=== PATIENT | male | born 1940 | race Caucasian/White ===

== ENCOUNTER 2021-10-25 03:55 | Emergency (ER) | payer OTHER, SELFPAY ==
[2021-10-25 03:57] VITALS: BP 169/121; PULSE 87; RESP 20; O2SAT 100
--- NOTE | 2021-10-25 04:07 | ECG_ITS ---
Measurements Intervals [place] Rate: 77 P: 6 ME: 164 QRS: -17 QRSD: 94 T: 14 QT: 401 QTc: 455 Interpretive Statements SINUS RHYTHM INCOMPLETE RIGHT BUNDLE BRANCH BLOCK LEFT VENTRICULAR HYPERTROPHY AND ST-T CHANGE BORDERLINE R WAVE PROGRESSION, ANTERIOR LEADS INFERIOR INFARCT, AGE INDETERMINATE BASELINE ARTIFACT- I, II, III, AVR, AVL, AVF, V1-V6 ABNORMAL ECG Electronically Signed On 10-25-2021 16:19:43 CDT by Bobby Mason D.O.
[2021-10-25 05:16] LABS: Basophils Percent Auto 0.5 % (0.2-1.2); Eosinophils Percent Auto 0.4 % (0-4.4); Hematocrit 41.1 % (42.0-52.0); Hemoglobin 13.1 g/dL (14.0-18.0); Immature Granulocyte Absolute 0.04 K/mm3 (0.00-0.031); Immature Granulocyte Percent A 0.5 % (0-0.5); Lymphocytes Absolute Auto 0.64 K/mm3 (0.9-3.2); Lymphocytes Percent Auto 8.3 % (18.3-44.2); Mean Corpuscular HGB Conc 31.9 g/dl (32-36); Mean Corpuscular Hemoglobin 29.1 pg (26-34); Mean Corpuscular Volume 91.3 fl (80-100); Mean Platelet Volume 12.8 fl (7.4-10.4); Monocytes Absolute Auto 0.4 K/mm3 (0.1-0.6); Monocytes Percent Auto 5.6 % (2.6-8.5); Neutrophils Absolute Auto 6.5 K/mm3 (1.3-6.7); Neutrophils Percent Auto 84.7 % (45.5-73.1); Platelet Count Result 197 k/mm3 (150-375); Red Cell Distribution Width 13.8 % (11.5-14.5); White Blood Count 7.7 K/mm3 (4.5-10.0)
[2021-10-25 05:26] LABS: Alanine Aminotransferase 20 U/L (6-50); Albumin Level 3.8 g/dL (3.5-5.1); Alkaline Phosphatase 34 U/L (38-126); Anion Gap 4 mmol/L (8-16); Aspartate Amino Transferase 33 U/L (17-59); Bilirubin,Total 0.4 mg/dL (0.2-1.3); Blood Urea Nitrogen 20 mg/dL (9-20); Calcium 8.5 mg/dL (8.4-10.2); Carbon Dioxide 26 mmol/L (22-30); Chloride 106 mmol/L (98-107); Estimated CRCL calculation 83 ml/min; Estimated Glomerular Filt Rate > 60; Glucose 130 mg/dL (65-110); Sodium 136 mmol/L (137-145)
[2021-10-25 05:30] LABS: INR 1.1; Partial Thromboplastin Time 28.8 SECONDS (22.3-36.8); Prothrombin Time 13.4 Seconds (11.1-14.7)
[2021-10-25 06:21] VITALS: BP 104/77; PULSE 80; RESP 16; O2SAT 97
--- NOTE | 2021-10-25 06:42 | ED.EPISTAXIS ---
HPI - Epistaxis General Chief complaint: Epistaxis Stated complaint: NOSEBLEED Source: patient, EMS and RN notes reviewed Mode of arrival: EMS Limitations: no limitations History of Present Illness HPI Narrative: This is an 81 year old male who presents for evaluation of epistaxis. He states he was picking his nose because he felt an itch. He then developed bleeding from his left nostril. He has been applying pressure but he has been unable to stop bleeding. HE also reports clots and he is spitting out clots that are drainage from back his nose. He denies history of nose bleeds in the past. HE denies dizziness or lightheaded. She denies nausea or vomiting. BP was noted to be 200s/110s by EMS so they gave patient labetolol 10 mg IV prior to arrival. Patient takes aspirin but denies any other blood thinner. Related Data Allergies Allergy/AdvReac Type Severity Reaction Status Date / Time No Known Allergies Allergy Verified 10/25/21 04:09 Review of Systems Review of Systems: All systems reviewed & are unremarkable except as noted in HPI and below PMFSH Past Medical History Medical History (Updated 10/25/21 @ 07:51 by Eliana Goodson MD) GERD (gastroesophageal reflux disease) Hypertension Muscular dystrophy Surgical History Surgical History (Updated 10/25/21 @ 07:52 by Eliana Goodson MD) No pertinent past surgical history Social History Social History (Updated 10/25/21 @ 07:52 by Eliana Goodson MD) Smoking status: Never smoker Exam Const: General: alert Orientation/consciousness: patient oriented x3 HENMT: Head: normocephalic and atraumatic General nose exam: Epistaxis present on the left clots present and source not visualized Face and sinus: normal facial exam Mouth: Yes lip normal, Yes tongue normal, Yes moist mucous membranes and Yes other (blood in mouth , see clot in posterior pharynx) Throat: uvula midline Eyes: Pupils: Equal, round and reactive pupils present EOM: EOMs intact bilaterally Resp: Effort & Inspection: normal respiratory effort and no retractions Auscultation: clear to auscultation bilaterally Cardio: Rate: regular rate Rhythm: regular rhythm Heart sounds: no murmurs GI: GI Palp: Yes Soft to palpation, No Tenderness to palpation present (GI) and No Guarding due to palpation present (GI) Auscultation: normal bowel sounds Neuro: General: patient oriented x3 and CN's II-XI intact bilaterally Psych: Mental Status: mental status grossly normal Affect: normal affect Course Reevaluation(s) Reevaluation #1: I placed rhino rocket on patient arrival and his bleeding has not restarted after 2 hours. HE denies posterior drainage. I discussed discharge plan with patient and family. Dr. Kelly recommends antibiotics and to call office this morning to get in clinic by Sunday. Date: 10/25/21 Time: 06:40 Vital Signs Vital signs: Vital Signs Pulse Rate 87 10/25/21 03:57 Respiratory Rate 20 10/25/21 03:57 Blood Pressure 169/121 H 10/25/21 03:57 Pulse Oximetry 100 10/25/21 03:57 Pulse Rate 90 10/25/21 07:12 Respiratory Rate 16 10/25/21 07:12 Blood Pressure 101/71 10/25/21 07:12 Pulse Oximetry 95 10/25/21 07:12 MDM - Epistaxis Lab Data Attestation: I reviewed the patient's lab results. Result diagrams: 10/25/21 05:08 10/25/21 05:08 Labs: Lab Results 10/25/21 10/25/21 10/25/21 Range/Units 05:08 05:08 05:08 WBC 7.7 (4.5-10.0) K/mm3 RBC 4.50 L (4.6-6.20) M/mm3 Hgb 13.1 L (14.0-18.0) g/dL Hct 41.1 L (42.0-52.0) % MCV 91.3 (80-100) fl MCH 29.1 (26-34) pg MCHC 31.9 L (32-36) g/dl RDW 13.8 (11.5-14.5) % Plt Count 197 (150-375) k/mm3 MPV 12.8 H (7.4-10.4) fl Immature Gran % (Auto) 0.5 (0-0.5) % Neut % (Auto) 84.7 H (45.5-73.1) % Lymph % (Auto) 8.3 L (18.3-44.2) % [place] % (Auto) 5.6 (2.6-8.5) % Eos % (Auto) 0.4 (0-4.4) %
[2021-10-25 07:12] VITALS: BP 101/71; PULSE 90; RESP 16; O2SAT 95
== END 2021-10-25 07:10 | disposition home or self-care (01) ==
PROVIDERS: Emergency Provider General Practice
DX: R04.0 Epistaxis (principal); I10 Essential (primary) hypertension
CPT/HCPCS: 30901; 36415; 80053; 85025; 85610; 85730; 93005; 99283; A9270